=== PATIENT | male | born 1950 | race Caucasian/White ===

== ENCOUNTER → 2018-11-08 | Outpatient (CLI) | payer OTHER, MEDICARE ==
[~2018-11-08] VITALS: Ht 160 cm; Wt 67.1 kg
[~2018-11-08] MED LIST: ALEVE220 M1 PO; ASPIR 8181 MG PO; BENADRYL25 MG PO; FLEXERIL PO; FLOMAX PO; MELATONIN1 MG PO; NITROGLYCERIN0.4 MG SUBLING; PERCOCET 5-3251 EACH PO; VALERIAN ROOT100 MG PO; ZOCOR 20 MG TAB20 M1 PO; ZOFRAN 4 MG ORAL4 M1 DIS
--- NOTE | ~2018-11-08 | PATH ---
[facility] [place] [address] PATHOLOGY RPT PROCEDURE Name: JAS PADILLA Room #: [facility].#: [id number] Admission: 11/08/18 Date of : 52 Discharge: Report #: [id number] Path Case #: [id number] [facility] Accession Number: [id number] . 01 Material submitted: . BX OF POLYP AT TRANSVERSE COLON . 01 Clinical history: . Family history of colon cancer . 02 Diagnosis: Polyp, at transverse colon, endoscopic biopsy: - Hyperplastic polyp. - Negative for dysplasia. . (IUV:mml; 11/09/18) [facility]/11/09/2018 . 02 Electronically signed: . Daisha Farris MD, Pathologist NPI- [id number] . 01 Gross description: . The specimen is received in formalin, labeled "Roselia, Jas, BX of polyp at transverse colon", is a ruiz polypoid soft tissue 0.8 cm in greatest dimension, entirely submitted in A1. (SWS; 11/08/2018) [facility] . 02 Pathologist provided ICD-10: K63.5 . 02 CPT . 833191 Specimen Comment: A courtesy copy of this report has been sent to Specimen Comment: [phone], . Specimen Comment: Report sent to / DR BEAN Performed at: [address], [place] [id number] MD Osmar Mayo MD Phone: [phone] Performed at: [address] [id number] MD Daisha Farris MD Phone: [phone]
== END | disposition home or self-care (01) ==
LOC: GI 07:42
DX: Z12.11 Encounter for screening for malignant neoplasm of colon (principal); Z80.0 Family history of malignant neoplasm of digestive organs; Z86.010 Personal history of colon polyps; K63.5 Polyp of colon; K57.30 Diverticulosis of large intestine without perforation or abscess without bleeding; K64.8 Other hemorrhoids; E78.00 Pure hypercholesterolemia, unspecified; N40.0 Benign prostatic hyperplasia without lower urinary tract symptoms; Z98.890 Other specified postprocedural states; Z79.899 Other long term (current) drug therapy; Z87.442 Personal history of urinary calculi
CPT/HCPCS: 62110; 62900

== ENCOUNTER → 2021-05-27 | Outpatient (CLI) | payer OTHER, MEDICARE ==
[~2021-05-27] VITALS: Ht 160 cm; Wt 64.4 kg
[~2021-05-27] MED LIST changes: +CBD PO; +IRON325 M1 PO; +PEPCID AC20 MG PO
== END | disposition home or self-care (01) ==
LOC: GI 09:20
PROVIDERS: ATTEND Internal Medicine Gastroenterology
DX: D50.9 Iron deficiency anemia, unspecified (principal); K44.9 Diaphragmatic hernia without obstruction or gangrene; K21.9 Gastro-esophageal reflux disease without esophagitis; E78.5 Hyperlipidemia, unspecified; D64.9 Anemia, unspecified; M19.90 Unspecified osteoarthritis, unspecified site; Z98.890 Other specified postprocedural states; Z87.442 Personal history of urinary calculi; Z87.891 Personal history of nicotine dependence; Z79.899 Other long term (current) drug therapy
CPT/HCPCS: 62110; 62900

== ENCOUNTER → 2021-06-04 | Outpatient (CLI) | payer OTHER, MEDICARE | END | disposition home or self-care (01) | LOC: GI 06:34 | PROVIDERS: ATTEND Internal Medicine Gastroenterology | DX: D64.9 Anemia, unspecified (principal); Z79.899 Other long term (current) drug therapy ==